=== PATIENT | female | born 2000 | race Caucasian/White ===

== ENCOUNTER 2021-03-21 22:46 | Emergency (ER) | payer OTHER ==
[2021-03-21 22:55] VITALS: BP 120/64; PULSE 76; TEMP 98.8; BMI 23.9
[2021-03-21 23:13] LABS: EPITHELIAL CELLS FEW /hpf
[2021-03-21] MEDS ORDERED: NITROFURANTOIN MACROCRYSTAL 50 MG CAPSULE (FP) ONE (23:21)
[2021-03-21] MEDS ORDERED: PHENAZOPYRIDINE HCL 100 MG TABLET (FP) ONE (23:21)
[2021-03-21] MEDS ORDERED: PHENAZOPYRIDINE HCL 100 MG TABLET (FP) PO STA (23:24)
[2021-03-21] MEDS ORDERED: NITROFURANTOIN MACROCRYSTAL 50 MG CAPSULE (FP) PO SCH (23:30)
[2021-03-22] MEDS ORDERED: PHENAZOPYRIDINE HCL 100 MG TABLET (FP) PO SCH (09:00)
== END 2021-03-21 23:27 | disposition home or self-care (01) ==
LOC: FER 22:46
DX: N30.00 Acute cystitis without hematuria (principal)
CPT/HCPCS: 81003; 81015; 87086; 87186; 99283-25